=== PATIENT | female | born 1970 ===

== ENCOUNTER 2017-01-23 20:19 | Emergency (ER) | payer OTHER ==
[2017-01-23 20:52] LABS: APPEARANCE,URINE SLIGHTLY-CLOUDY; BILIRUBIN,URINE NEGATIVE (NEGATIVE); GLUCOSE, URINE NEGATIVE (NEGATIVE); KETONES,URINE NEGATIVE (NEGATIVE); LEUKOCYTE ESTERASE,URINE NEGATIVE (NEGATIVE); NITRITE,URINE NEGATIVE (NEGATIVE); PROTEIN,URINE NEGATIVE (NEGATIVE); URINE SPECIFIC GRAVITY 1.027; UROBILINOGEN,URINE NEGATIVE mg/dL (<2.0)
[2017-01-23] MEDS ORDERED: KETOROLAC TROMETHAMINE INJ/PF 30 MG/1 ML SDV IV ONE (22:01)
[2017-01-23] MEDS ORDERED: ONDANSETRON HCL INJ/PF 4 MG/2 ML SDV IV ONE (22:01)
[2017-01-23] MEDS ORDERED: NORMAL SALINE 1000 ML 1,000 ML IV ONE (22:01)
--- NOTE | 2017-01-23 22:02 | ER Document Report ---
ED General - General Chief Complaint: Dizziness Stated Complaint: BODY ACHES Time Seen by Provider: 01/23/17 21:51 Notes: Patient is a 46-year-old female that comes emergency department for chief complaints of body aches, intermittently feeling lightheaded, feeling tired, and feeling weak. Symptoms started this morning. Patient states she felt like she had a fever. She denies any specific areas of pain including abdominal pain , chest pain, headache, neck pain. She denies any obvious sick contacts. She denies any medications or surgeries, denies any past medical history. TRAVEL OUTSIDE OF THE [place] IN LAST 30 DAYS: No - Related Data Allergies/Adverse Reactions: No Known Allergies Allergy (Verified 01/24/17 02:09) Past Medical History - General Information source: Patient - Social History Smoking Status: Never Smoker Frequency of alcohol use: None Drug Abuse: None Lives with: Family Family History: Reviewed & Not Pertinent Patient has suicidal ideation: No Patient has homicidal ideation: No - Medical History Medical History: Negative Renal/ Medical History: Denies: Hx Peritoneal Dialysis Surgical Hx: Negative - Immunizations Hx Diphtheria, Pertussis, Tetanus Vaccination: Yes Review of Systems - Review of Systems Constitutional: See HPI EENT: No symptoms reported Cardiovascular: No symptoms reported Respiratory: No symptoms reported Gastrointestinal: No symptoms reported Genitourinary: No symptoms reported Female Genitourinary: No symptoms reported Musculoskeletal: No symptoms reported Skin: No symptoms reported Hematologic/Lymphatic: No symptoms reported Neurological/Psychological: No symptoms reported Physical Exam - Vital signs Vitals: Temp Pulse Resp BP Pulse Ox 98.3 F 105 H 16 141/77 H 97 01/23/17 20:22 01/23/17 20:22 01/23/17 20:22 01/23/17 20:22 01/23/17 20:22 Interpretation: Normal - General General appearance: Appears well, Alert In distress: None - Patient appears slightly under the weather but does not appear to be toxic or in any distress - HEENT Head: Normocephalic, Atraumatic Eyes: Normal Conjunctiva: Normal Extraocular movements intact: Yes Eyelashes: Normal Pupils: PERRL Nasal: Normal Mouth/Lips: Normal Mucous membranes: Normal Pharynx: Normal. No: Erythema, Exudate Neck: Normal. No: Meningismus - Respiratory Respiratory status: No respiratory distress. No: Tachypnea Chest status: Nontender Breath sounds: Normal. No: Decreased air movement, Wheezing Chest palpation: Normal - Cardiovascular Rhythm: Regular, Tachycardia - Borderline Heart sounds: Normal auscultation, S1 appreciated, S2 appreciated Murmur: No - Abdominal Inspection: Normal Distension: No distension Bowel sounds: Normal Tenderness: Nontender Organomegaly: No organomegaly - Back Back: Normal, Nontender - Extremities General upper extremity: Normal inspection, Nontender, Normal color, Normal ROM , Normal temperature General lower extremity: Normal inspection, Nontender, Normal color, Normal ROM , Normal temperature, Normal weight bearing. No: Alex's sign - Neurological Neuro grossly intact: Yes Cognition: Normal Orientation: AAOx4 Sabrina Coma Scale Eye Opening: Spontaneous Sabrina Coma Scale Verbal: Oriented Sabrina Coma Scale Motor: Obeys Commands Sabrina Coma Scale Total: 15 Speech: Normal Cranial nerves: Normal Cerebellar coordination: Normal Motor strength normal: LUE, RUE, LLE, RLE Sensory: Normal - Psychological Associated symptoms: Normal affect, Normal mood - Skin Skin Temperature: Warm Skin Moisture: Dry Skin Color: Normal Course - Re-evaluation Re-evalutation: Patient appears mildly under the weather, borderline tachycardia, dry mucous membranes, however she does not appear to be toxic or in distress. She denies headache, neck pain, abdominal pain, chest pain, she does not have a rash. Leukocytosis at 13.2 with bandemia at 11%. Chemistry unremarkable, urine unremarkable except showing elevated specific gravity and hyalin casts consistent with dehydration. Patient was tachycardic, this resolved after IV fluids. Because of bandemia strep and chest x-ray were checked and both showed no abnormality. On reevaluation patient stating she feels weak and has chills intermittently but denies any other symptoms. Soft abdomen. No nuchal rigidity on exam. Patient denying any headache. CBC rechecked after hydration, leukocytosis resolved, bandemia similar. Patient not hypotensive or tachycardic. However patient has not developed a fever greater than 101. Discussed with Dr. Ruiz, recommends offering patient a lumbar puncture and if she refuses that she should return for reevaluation within 24 hours If she does not improve. Patient still denies headache or any other symptoms other than feeling weak and feeling the chills. Patient denies any known tick bite or any illness exposure. Denies recent travel. Patient refuses a lumbar puncture even after possibilities of meningitis were discussed, she states that she wants to go home, patient will be covered with doxycycline broadly, she states that if she is not improved she will return within 24 hours. - Vital Signs Vital signs: Temp Pulse Resp BP Pulse Ox 101.9 F H 88 16 107/50 L 95 01/24/17 04:57 01/24/17 04:57 01/24/17 04:57 01/24/17 04:57 01/24/17 04:57 - Laboratory Result Diagrams: 01/24/17 04:09 01/23/17 23:00 Laboratory results interpreted by me: 01/23/17 01/23/17 01/23/17 20:30 23:00 23:00 WBC 13.5 H Hgb Seg Neuts % (Manual) 82 H Band Neutrophils % 12 H Lymphocytes % (Manual) 5 L Monocytes % (Manual) 1 L Abs Neuts (Manual) 12.7 H Sodium 136.4 L Urine Blood SMALL H 01/24/17 04:09 WBC Hgb 11.9 L Seg Neuts % (Manual) Band Neutrophils % 18 H Lymphocytes % (Manual) 7 L Monocytes % (Manual) Abs Neuts (Manual) Sodium Urine Blood Discharge - Discharge Clinical Impression: Body aches, Dehydration Condition: Stable Disposition: HOME, SELF-CARE Additional Instructions: You workup shows dehydration. Take tylenol or ibuprofen for your fever. Rest. Hydrate. At this time it is unclear of the cause of your fever. Take the doxycycline as directed. Return for a re-evaluation in 24 hours if you do not feel any better (still weak , still running fevers) Return to the ED sooner for any concerning or worsening symptoms - vomiting, abdominal pain, shortness of breath, severe headache, etc. Prescriptions: Doxycycline Hyclate 100 mg PO BID #14 capsule Forms: Return to Work
[2017-01-23 23:28] LABS: HEMATOCRIT 39.6 % (36.0-47.0); HEMOGLOBIN 13.3 g/dL (12.0-15.5); HGB HCT DIFFERENCE 0.3; MEAN CORPUSCULAR HEMOGLOBIN 31.1 pg (27.0-33.4); MEAN CORPUSCULAR HGB CONC 33.6 g/dL (32.0-36.0); MEAN CORPUSCULAR VOLUME 92 fl (80-97); RED BLOOD COUNT 4.29 10^6/uL (3.72-5.28); RED CELL DISTRIBUTION WIDTH 13.6 % (11.5-14.0); WHITE BLOOD COUNT 13.5 10^3/uL (4.0-10.5)
[2017-01-23 23:30] LABS: ALANINE AMINOTRANSFERASE 34 U/L (9-52); ALBUMIN 4.3 g/dL (3.5-5.0); ALKALINE PHOSPHATASE 94 U/L (38-126); ANION GAP 12 (5-19); ASPARTATE AMINO TRANSFERASE 26 U/L (14-36); BILIRUBIN,DIRECT 0.3 mg/dL (0.0-0.4); BILIRUBIN,TOTAL 0.7 mg/dL (0.2-1.3); BLOOD UREA NITROGEN 13 mg/dL (7-20); CALCIUM 9.2 mg/dL (8.4-10.2); CARBON DIOXIDE 25 mmol/L (22-30); CHLORIDE 99 mmol/L (98-107); CREATININE RESULT 0.73 mg/dL (0.52-1.25); GLUCOSE 109 mg/dL (75-110); POTASSIUM 4.3 mmol/L (3.6-5.0); SODIUM 136.4 mmol/L (137-145); TOTAL PROTEIN 7.6 g/dL (6.3-8.2)
[2017-01-23 23:46] LABS: BASOPHILS % (MANUAL) 0 % (0-2); EOSINOPHILS % (MANUAL) 0 % (0-6); LYMPHOCYTES % (MANUAL) 5 % (13-45); TOTAL CELLS COUNTED 100
[2017-01-23 23:48] LABS: TOXIC GRANULATION SLIGHT; TOXIC VACUOLATION PRESENT
[2017-01-23 23:49] LABS: PLATELET CLUMPS PRESENT; RBC MORPHOLOGY COMMENT NORMO-CYTIC/CHROMIC
[2017-01-23 23:50] LABS: BAND NEUTROPHILS % (MANUAL) 12 % (3-5)
[2017-01-24] MEDS ORDERED: NORMAL SALINE 1000 ML 1,000 ML IV ONE (02:24)
--- NOTE | 2017-01-24 03:40 | RADIOLOGY REPORT (SQ) ---
EXAM DESCRIPTION: CHEST PA/LAT COMPLETED DATE/TIME: 01/24/2017 3:28 am REASON FOR STUDY: weakness, leukocytosis and bandemia COMPARISON: None. EXAM PARAMETERS: NUMBER OF VIEWS: two views TECHNIQUE: Digital Frontal and Lateral radiographic views of the chest acquired. RADIATION DOSE: NA LIMITATIONS: none FINDINGS: LUNGS AND PLEURA: No opacities, masses or pneumothorax. No pleural effusion. MEDIASTINUM AND HILAR STRUCTURES: No masses or contour abnormalities. HEART AND VASCULAR STRUCTURES: Heart normal size. No evidence for failure. BONES: No acute findings. HARDWARE: Lower cervical hardware fusion. OTHER: No other significant finding. IMPRESSION: NO SIGNIFICANT RADIOGRAPHIC FINDING IN THE CHEST. TECHNICAL DOCUMENTATION: JOB ID: [id number] [employer]- All Rights Reserved
[2017-01-24] MEDS ORDERED: ACETAMINOPHEN 325 MG TABLET PO ONE (03:46)
[2017-01-24 04:37] LABS: HEMATOCRIT 36.5 % (36.0-47.0); HEMOGLOBIN 11.9 g/dL (12.0-15.5); HGB HCT DIFFERENCE -0.8; MEAN CORPUSCULAR HEMOGLOBIN 30.4 pg (27.0-33.4); MEAN CORPUSCULAR HGB CONC 32.6 g/dL (32.0-36.0); MEAN CORPUSCULAR VOLUME 93 fl (80-97); RED BLOOD COUNT 3.91 10^6/uL (3.72-5.28); RED CELL DISTRIBUTION WIDTH 13.6 % (11.5-14.0); WHITE BLOOD COUNT 9.4 10^3/uL (4.0-10.5)
[2017-01-24 04:53] LABS: BAND NEUTROPHILS % (MANUAL) 18 % (3-5); BASOPHILS % (MANUAL) 0 % (0-2); EOSINOPHILS % (MANUAL) 0 % (0-6); LYMPHOCYTES % (MANUAL) 7 % (13-45); TOTAL CELLS COUNTED 100
[2017-01-24 04:55] LABS: PLATELET CLUMPS PRESENT; RBC MORPHOLOGY COMMENT NORMO-CYTIC/CHROMIC; TOXIC VACUOLATION PRESENT
[2017-01-24 04:59] VITALS: BP 107/50
[2017-01-24] MEDS ORDERED: DOXYCYCLINE HYCLATE 100 MG TABLET PO ONE (05:17)
--- NOTE | 2017-01-24 09:47 | EKG REPORT ---
SEVERITY:- BORDERLINE ECG - SINUS RHYTHM PROBABLE LEFT ATRIAL ABNORMALITY BORDERLINE T WAVE ABNORMALITIES : Confirmed by: Artur Tapia 24-Jan-2017 09:46:43
[2017-01-25 09:10] LABS: PATH REVIEW PATHOLOGIST REVIEWED
[2017-01-26 07:01] LABS: LYME DISEASE IGG AND IGM AB <0.91 ISR (0.00-0.90); ROCKY MTN SPOTTED FEV IGG EIA Negative (Negative)
== END 2017-01-24 05:20 | disposition home or self-care (01) ==
LOC: ER 20:19
DX: E86.0 Dehydration (principal); R52 Pain, unspecified; R42 Dizziness and giddiness; R53.1 Weakness
CPT/HCPCS: 93005; 99284; 96361; 96374; 96375; 36415; 87040; 87070; 87880; 85025; 81025; 80053; 81001; 86757 ×2; 86618 ×2; 86617 ×2; 71020; 93010; J1885; J2405; J7030 ×2

== ENCOUNTER 2017-01-26 14:00 | Emergency (ER) | payer OTHER ==
--- NOTE | 2017-01-26 15:10 | ER Document Report ---
ED Medical Screen (RME) - General Mode of Arrival: Ambulatory Information source: Patient TRAVEL OUTSIDE OF THE [place] IN LAST 30 DAYS: No - HPI Patient complains to provider of: Weakness, diarrhea, abdominal pain, and vomiting Onset: Other - 3 days ago Associated Symptoms: Other - see notes above <COURT ALDRICH - Last Filed: 01/26/17 15:53> <QUAN HERNANDEZ - Last Filed: 01/26/17 20:55> - General Chief Complaint: Nausea/Vomiting/Diarrhea Stated Complaint: VOMITING/DIARRHEA Time Seen by Provider: 01/26/17 15:01 Notes: 46 year old female presents to the ED complaining of weakness, diarrhea, abdominal pain, vomiting, and lower back pain that started 3 days ago. Patient reports that she was seen in the ED 3 days ago with similar complaints where she was discharged with Doxycycline. Patient returns today because the symptoms are still persisting even with the antibiotics Patient reports that she vomited twice today and once last night. Patient denies fever, headache, neck or chest pain, or shortness of breath. Patient's abdominal pain is exacerbated with eating. (COURT ALDRICH) - Related Data Allergies/Adverse Reactions: No Known Allergies Allergy (Verified 01/24/17 02:09) Past Medical History - General Information source: Patient - Social History Family history: Reviewed & Not Pertinent - Medical History Medical History: Negative Renal/ Medical History: Denies: Hx Peritoneal Dialysis Surgical Hx: Negative - Immunizations Hx Diphtheria, Pertussis, Tetanus Vaccination: Yes <COURT ALDRICH - Last Filed: 01/26/17 15:53> Review of Systems - Review of Systems Constitutional: No symptoms reported. denies: Fever EENT: No symptoms reported Cardiovascular: No symptoms reported. denies: Chest pain Respiratory: No symptoms reported. denies: Short of breath Gastrointestinal: See HPI, Abdominal pain, Diarrhea, Vomiting Genitourinary: No symptoms reported Female Genitourinary: No symptoms reported Musculoskeletal: See HPI, Back pain - lower. denies: Neck pain Skin: No symptoms reported Hematologic/Lymphatic: No symptoms reported Neurological/Psychological: No symptoms reported. denies: Headaches -: Yes All other systems reviewed and negative <COURT ALDRICH - Last Filed: 01/26/17 15:53> Physical Exam - General General appearance: Alert In distress: None - Respiratory Respiratory status: No respiratory distress Breath sounds: Normal - Cardiovascular Rhythm: Regular Heart sounds: Normal auscultation Murmur: No Friction rub: No Gallop: None auscultated - Abdominal Inspection: Normal Distension: No distension Bowel sounds: Normal Tenderness: Nontender <COURT ALDRICH - Last Filed: 01/26/17 15:53> Course - Laboratory Result Diagrams: 01/26/17 16:20 01/26/17 16:20 <QUAN HERNANDEZ - Last Filed: 01/26/17 20:55> - Vital Signs Vital signs: Temp Pulse Resp BP Pulse Ox 97.9 F 66 16 120/75 97 01/26/17 20:48 01/26/17 20:48 01/26/17 20:48 01/26/17 20:48 01/26/17 20:48 - Laboratory Laboratory results interpreted by me: 01/26/17 01/26/17 01/26/17 15:15 16:20 16:20 Monocytes % 14.8 H Potassium 3.5 L Chloride 96 L Urine Blood SMALL H Doctor's Discharge <COURT ALDRICH - Last Filed: 01/26/17 15:53> <QUAN HERNANDEZ - Last Filed: 01/26/17 20:55> - Discharge Clinical Impression: Abdominal pain, Nausea and vomiting, Diarrhea Condition: Good Disposition: HOME, SELF-CARE Additional Instructions: Your symptoms are likely a side effect of doxycycline. Please do not discontinue this medication until you have completed all of the pills. Start taking famotidine 40 mg twice a day. This medication can be purchased over-the- counter. Please continue to drink plenty of fluids. Return to the emergency department immediately if you have worsening of your pain, become unable to tolerate fluids, pass out, or have any other symptoms that are worrisome to you. Scribe Documentation - Scribe Written by Liliya:: Liliya Caldwell, 01/26/2017 1559 acting as scribe for :: Alexander <COURT ALDRICH - Last Filed: 01/26/17 15:53>
[2017-01-26 16:26] LABS: APPEARANCE,URINE CLEAR; BILIRUBIN,URINE NEGATIVE (NEGATIVE); GLUCOSE, URINE NEGATIVE (NEGATIVE); KETONES,URINE NEGATIVE (NEGATIVE); LEUKOCYTE ESTERASE,URINE NEGATIVE (NEGATIVE); NITRITE,URINE NEGATIVE (NEGATIVE); PROTEIN,URINE NEGATIVE (NEGATIVE); URINE SPECIFIC GRAVITY 1.002; UROBILINOGEN,URINE NEGATIVE mg/dL (<2.0)
[2017-01-26 17:05] LABS: ABSOLUTE EOSINOPHILS # (AUTO) 0.1 10^3/uL (0.0-0.6); ABSOLUTE LYMPHOCYTES (AUTO) 1.1 10^3/uL (0.5-4.7); ABSOLUTE MONOCYTES (AUTO) 0.7 10^3/uL (0.1-1.4); ABSOLUTE NEUT (AUTO) 2.7 10^3/uL (1.7-8.2); BASOPHILS % (AUTO) 0.6 % (0-2); EOSINOPHILS % (AUTO) 1.6 % (0-6); HEMATOCRIT 42.5 % (36.0-47.0); HEMOGLOBIN 13.9 g/dL (12.0-15.5); HGB HCT DIFFERENCE -0.8; LYMPHOCYTES % (AUTO) 24.5 % (13-45); MEAN CORPUSCULAR HGB CONC 32.6 g/dL (32.0-36.0); MEAN CORPUSCULAR VOLUME 92 fl (80-97); MONOCYTES % (AUTO) 14.8 % (3-13); RED BLOOD COUNT 4.62 10^6/uL (3.72-5.28); RED CELL DISTRIBUTION WIDTH 13.3 % (11.5-14.0); SEGMENTED NEUTROPHILS % (AUTO) 58.5 % (42-78); WHITE BLOOD COUNT 4.6 10^3/uL (4.0-10.5)
[2017-01-26 17:21] LABS: ALANINE AMINOTRANSFERASE 22 U/L (9-52); ALBUMIN 4.1 g/dL (3.5-5.0); ALKALINE PHOSPHATASE 84 U/L (38-126); ANION GAP 16 (5-19); ASPARTATE AMINO TRANSFERASE 25 U/L (14-36); BILIRUBIN,DIRECT 0.4 mg/dL (0.0-0.4); BILIRUBIN,TOTAL 0.4 mg/dL (0.2-1.3); BLOOD UREA NITROGEN 7 mg/dL (7-20); CALCIUM 9.3 mg/dL (8.4-10.2); CARBON DIOXIDE 27 mmol/L (22-30); CHLORIDE 96 mmol/L (98-107); GLUCOSE 102 mg/dL (75-110); POTASSIUM 3.5 mmol/L (3.6-5.0); SODIUM 139.3 mmol/L (137-145); TOTAL PROTEIN 7.6 g/dL (6.3-8.2)
[2017-01-26] MEDS ORDERED: ONDANSETRON ODT 4 MG TAB (6 TAB/DSPK) PO PRN (20:39)
[2017-01-26] MEDS ORDERED: FAMOTIDINE 20 MG TABLET PO ONE (20:39)
[2017-01-26] MEDS ORDERED: MAG HYDROX/AL HYDROX/SIMETH SUSP 30 ML UDCUP PO ONE (20:40)
[2017-01-26] MEDS ORDERED: LIDOCAINE 2% VISCOUS SOLN 20 ML UDCUP PO ONE (20:40)
[2017-01-26] MEDS ORDERED: METOCLOPRAMIDE HCL ORAL SOLN 10 MG/10 ML UDCUP PO ONE (20:40)
--- NOTE | 2017-01-26 20:45 | ER Document Report ---
ED General - General Chief Complaint: Nausea/Vomiting/Diarrhea Stated Complaint: VOMITING/DIARRHEA Time Seen by Provider: 01/26/17 15:01 Mode of Arrival: Ambulatory Notes: Patient is a 46-year-old female recently seen in the emergency department and started on doxycycline for empiric treatment of possible [place] fever who presents with 2-3 days of nausea, vomiting and diarrhea as well as associated abdominal cramping. Nothing improves or worsens her symptoms. States she feels that the symptoms started after she began taking the doxycycline. She has not seen a primary care doctor regarding today's concerns. Notes that she has been able to tolerate oral intake despite her nausea and vomiting. Abdomen is described as a dull, intermittent, mild cramping pain which is not present at the time of my assessment. Notes that her fever, generalized myalgias and aches have all resolved. TRAVEL OUTSIDE OF THE [place] IN LAST 30 DAYS: No - Related Data Allergies/Adverse Reactions: No Known Allergies Allergy (Verified 01/24/17 02:09) Past Medical History - General Information source: Patient - Social History Smoking Status: Never Smoker Frequency of alcohol use: None Drug Abuse: None Lives with: Spouse/Significant other Family History: Reviewed & Not Pertinent Patient has suicidal ideation: No Patient has homicidal ideation: No - Medical History Medical History: Negative Renal/ Medical History: Denies: Hx Peritoneal Dialysis Surgical Hx: Negative - Immunizations Hx Diphtheria, Pertussis, Tetanus Vaccination: Yes Review of Systems - Review of Systems Notes: Constitutional: Negative for fever. HENT: Negative for sore throat. Eyes: Negative for visual changes. Cardiovascular: Negative for chest pain. Respiratory: Negative for shortness of breath. Gastrointestinal: Positive for abdominal pain vomiting and diarrhea Genitourinary: Negative for dysuria. Musculoskeletal: Negative for back pain. Skin: Negative for rash. Neurological: Negative for headaches, weakness or numbness. 10 point ROS negative except as marked above and in HPI. Physical Exam - Vital signs Vitals: Temp Pulse Resp BP Pulse Ox 98.4 F 88 14 133/84 H 97 01/26/17 14:12 01/26/17 14:12 01/26/17 14:12 01/26/17 14:12 01/26/17 14:12 Interpretation: Normal Notes: PHYSICAL EXAMINATION: GENERAL: Well-appearing, well-nourished and in no acute distress. HEAD: Atraumatic, normocephalic. EYES: Pupils equal round and reactive to light, extraocular movements intact, sclera anicteric, conjunctiva are normal. ENT: nares patent, oropharynx clear without exudates. Moist mucous membranes. NECK: Normal range of motion, supple without lymphadenopathy LUNGS: Breath sounds clear to auscultation bilaterally and equal. No wheezes rales or rhonchi. HEART: Regular rate and rhythm without murmurs ABDOMEN: Soft, nontender, normoactive bowel sounds. No guarding, no rebound. No masses appreciated. EXTREMITIES: Normal range of motion, no pitting or edema. No cyanosis. NEUROLOGICAL: No focal neurological deficits. Moves all extremities spontaneously and on command. PSYCH: Normal mood, normal affect. SKIN: Warm, Dry, normal turgor, no rashes or lesions noted. Course - Re-evaluation Re-evalutation: 01/26/17 20:40 Patient presents complaining of nausea, vomiting, diarrhea and diffuse abdominal pain which started after starting doxycycline after her most recent emergency department visit. Her vitals and appearance are all within normal limits. She has no focal abdominal tenderness on exam, no rebound no guarding or rigidity. States abdominal pain is intermittent and not present at the time of my assessment. She has been able to tolerate oral intake without difficulty. Labs today appear markedly improved relative to her most recent assessment. Bandemia and leukocytosis have resolved. I suspect that the patient's abdominal discomfort is related to her taking doxycycline given the time course of when her symptoms started. She does complain of reflux-like symptoms with burning in her upper abdomen as well as intermittent abdominal cramping. I do not suspect an acute bowel obstruction, acute cholecystitis, pancreatitis, bowel perforation, acute appendicitis, is on exam and history do not see an acute indication for CT scan of the abdomen pelvis based on her normal vitals, labs, and physical examination. I have encouraged patient continue to take doxycycline as her rickettsial levels were elevated from her previous assessment. Blood cultures at that time were normal. Will start on famotidine, Zofran, and recommend a recheck with her primary care doctor in 24 hours. At this time will discharge with return precautions and follow-up recommendations. Verbal discharge instructions given a the bedside and opportunity for questions given. Medication warnings reviewed. Patient is in agreement with this plan and has verbalized understanding of return precautions and the need for primary care follow-up in the next 24-72 hours. - Vital Signs Vital signs: Temp Pulse Resp BP Pulse Ox 97.9 F 66 16 120/75 97 01/26/17 20:48 01/26/17 20:48 01/26/17 20:48 01/26/17 20:48 01/26/17 20:48 - Laboratory Result Diagrams: 01/26/17 16:20 01/26/17 16:20 Laboratory results interpreted by me: 01/26/17 01/26/17 01/26/17 15:15 16:20 16:20 Monocytes % 14.8 H Potassium 3.5 L Chloride 96 L Urine Blood SMALL H Discharge - Discharge Clinical Impression: Abdominal pain Qualifiers: Abdominal location: generalized Qualified Code(s): R10.84 - Generalized abdominal pain Nausea and vomiting Qualifiers: Vomiting type: unspecified Vomiting Intractability: non-intractable Qualified Code(s): R11.2 - Nausea with vomiting, unspecified Diarrhea Qualifiers: Diarrhea type: unspecified type Qualified Code(s): R19.7 - Diarrhea, unspecified Condition: Good Disposition: HOME, SELF-CARE Additional Instructions: Your symptoms are likely a side effect of doxycycline. Please do not discontinue this medication until you have completed all of the pills. Start taking famotidine 40 mg twice a day. This medication can be purchased over-the- counter. Please continue to drink plenty of fluids. Return to the emergency department immediately if you have worsening of your pain, become unable to tolerate fluids, pass out, or have any other symptoms that are worrisome to you. Forms: Parent Work Note
[2017-01-26 20:50] VITALS: BP 120/75
== END 2017-01-26 21:14 | disposition home or self-care (01) ==
LOC: ER 14:00
DX: R10.84 Generalized abdominal pain (principal); R11.2 Nausea with vomiting, unspecified; R19.7 Diarrhea, unspecified; M79.1 Myalgia
CPT/HCPCS: 99284; 36415; 84702; 83690; 85025; 80053; 81001; 87493 ×2; J3490